=== PATIENT | male | born 1995 | race Two or more races ===

== ENCOUNTER 2019-03-10 16:30 | Outpatient (RCR) | payer OTHER, SELFPAY | END 2019-03-10 16:50 | disposition home or self-care (01) | LOC: OT 16:30 | PROVIDERS: Visit Provider Orthopaedic Surgery | DX: S53.104A Unspecified dislocation of right ulnohumeral joint, initial encounter (principal) | CPT/HCPCS: 97763 ==

== ENCOUNTER → 2019-03-19 13:03 | Outpatient (CLI) | payer OTHER, SELFPAY ==
--- NOTE | 2019-03-19 13:09 | CT_ITS ---
PROCEDURE: CT ELBOW RT WO CON CLINICAL HISTORY: further evaluate a RIGHT elbow dislocation Follow-up elbow dislocation., Possible associated fracture COMPARISON: XR ELBOW RT MIN 3V from 03/07/2019 XR ELBOW RT 2V from 03/07/2019 TECHNIQUE: Axial images obtained with sagittal and coronal reformats. All CT scans at the facility use one or more dose reduction, viz: automated exposure control, ma/kV adjustment per patient size (including targeted exams where dose is matched to indication, i.e. head), or iterative reconstruction technique. FINDINGS: The on the pre reduction images there was a question of a small bony fragment in the olecranon region. This is not demonstrated on the CT scan and may have been due to artifact. There remains a small joint effusion with mildly displaced fat pad. No acute fracture or dislocation is evident. IMPRESSION: 1. No acute fracture. No fracture fragments apparent. 2. Small elbow joint effusion Dictated by: Casey Armstrong MD 03/20/2019 09:08 Electronically signed by Casey Armstrong MD in [facility] 03/20/2019 09:08
== END ==
PROVIDERS: Visit Provider Orthopaedic Surgery
DX: S53.104A Unspecified dislocation of right ulnohumeral joint, initial encounter (principal)
CPT/HCPCS: 73200

== ENCOUNTER → 2019-04-07 11:01 | Outpatient (CLI) | payer OTHER, SELFPAY ==
--- NOTE | 2019-04-07 11:07 | XR_ITS ---
PROCEDURE: XR ELBOW RT MIN 3V CLINICAL INDICATION: RIGHT elbow dislcation follow up Follow-up dislocation COMPARISON: XR ELBOW RT MIN 3V from 03/07/2019 XR ELBOW RT 2V from 03/07/2019 FINDINGS: There is a lucency at the tip of the olecranon process suggesting a small nondisplaced fracture. The joint spaces are well-preserved. No significant degenerative/arthritic changes. No erosive changes evident. No dislocation Other findings:None. IMPRESSION: Small avulsion fracture at the proximal tip of the olecranon otherwise negative Dictated by: Casey Armstrong MD 04/07/2019 18:02 Electronically signed by Casey Armstrong MD in [facility] 04/07/2019 18:02
== END ==
PROVIDERS: Visit Provider Orthopaedic Surgery
DX: S53.104A Unspecified dislocation of right ulnohumeral joint, initial encounter (principal)
CPT/HCPCS: 73080

== ENCOUNTER → 2019-05-19 09:06 | Outpatient (CLI) | payer OTHER, SELFPAY ==
--- NOTE | 2019-05-19 09:10 | XR_ITS ---
PROCEDURE: XR ELBOW RT MIN 3V CLINICAL INDICATION: right elbow dislocation follow up COMPARISON: XR ELBOW RT MIN 3V from 03/07/2019 XR ELBOW RT 2V from 03/07/2019 CT ELBOW RT WO CON from 03/19/2019 XR ELBOW RT MIN 3V from 04/07/2019 FINDINGS: No evidence dislocation. There are multiple small opacities which have developed at least 4 along the inferior aspect the medial epicondyle and 1 along the lateral epicondyle. This could be due to heterotopic ossification. No avulsion fractures were evident on a prior CT of 03/19/2019. No displaced fat pads Other findings:None. IMPRESSION: Heterotopic ossification medially and laterally. No evidence of recurrence dislocation Dictated by: Casey Armstrong MD 05/19/2019 18:51 Electronically signed by Casey Armstrong MD in [facility] 05/19/2019 18:51
== END ==
PROVIDERS: Visit Provider Orthopaedic Surgery
DX: S53.104D Unspecified dislocation of right ulnohumeral joint, subsequent encounter (principal)
CPT/HCPCS: 73080

== ENCOUNTER → 2019-07-05 14:34 | Outpatient (CLI) | payer OTHER, SELFPAY ==
--- NOTE | 2019-07-05 14:38 | XR_ITS ---
PROCEDURE: XR ELBOW RT MIN 3V CLINICAL INDICATION: right elbow dislocation follow up COMPARISON: XR ELBOW RT MIN 3V from 03/07/2019 XR ELBOW RT 2V from 03/07/2019 XR ELBOW RT MIN 3V from 04/07/2019 XR ELBOW RT MIN 3V from 05/19/2019 FINDINGS: No fracture or dislocation. No lytic or blastic change. There is normal mineralization. Minimal hypertrophic changes are present involving the lateral aspect of the radial head. Calcification also noted both medial and lateral epicondylar region which could be result of prior trauma with avulsion injuries or periarticular calcification not significantly changed. No evidence of dislocation. Other findings:None. IMPRESSION: No change with no acute finding. The elbow is located without evidence of acute fracture Dictated by: Casey Armstrong MD 07/05/2019 16:15 Electronically signed by Casey Armstrong MD in [facility] 07/05/2019 16:15
== END ==
PROVIDERS: Visit Provider Orthopaedic Surgery
DX: S53.104A Unspecified dislocation of right ulnohumeral joint, initial encounter (principal)
CPT/HCPCS: 73080